=== PATIENT | male | born 1945 | race American Indian/Alaskan Native ===

== ENCOUNTER 2019-02-26 17:20 | Outpatient (CLI) | payer MEDICARE, OTHER | END 2019-02-26 17:21 | disposition home or self-care (01) | LOC: LAB 17:20 | PROVIDERS: ATTEND Psychiatry & Neurology Psychiatry | DX: F33.2 Major depressive disorder, recurrent severe without psychotic features (principal) | CPT/HCPCS: 36415; 86592 ==